=== PATIENT | male | born 1955 | race Caucasian/White ===

== ENCOUNTER 2016-12-17 06:46 | Day surgery (SDC) | payer MEDICAID ==
[~2016-12-17] VITALS: Ht 177.8 cm; Wt 104.3 kg
[2016-12-17] MEDS ORDERED: SIMETHICONE 40 MG/0.6 ML ML ONE (07:18)
[2016-12-17] MEDS: MIDAZOLAM HCL 5 MG/5 ML VIAL ONE ×2 (07:59→08:04)
[2016-12-17] MEDS: fentaNYL CITRATE/PF 100 MCG/2 ML AMP ONE ×2 (07:59→08:04)
[2016-12-17] MEDS ORDERED: DIPHENHYDRAMINE INJ 50 MG/ML VIAL ONE (08:37)
[2016-12-17 11:48] VITALS: BP 158/92; PULSE 67; RESP 12
== END 2016-12-17 09:40 | disposition home or self-care (01) ==
LOC: SDS 06:46 → SMU 07:29 → SDS 09:40
PROVIDERS: ATTEND Internal Medicine
DX: Z12.11 Encounter for screening for malignant neoplasm of colon (principal); D12.2 Benign neoplasm of ascending colon
CPT/HCPCS: 45385; 82962; 88305; J1200; J2250; J3010; J7030